=== PATIENT | male | born 1975 | race Caucasian/White ===

== ENCOUNTER 2025-09-20 15:38 | Emergency (ER) | payer SELFPAY ==
[~2025-09-20] VITALS: Ht 182.9 cm; Wt 113.0 kg
[2025-09-20 15:56] VITALS: O2SAT 98
[2025-09-20] MEDS ORDERED: HYDRALAZINE HCL 50MG TABLET PO ONE (17:00)
[2025-09-20] MEDS: LOSARTAN 50 MG TABLET PO ONE (17:17)
[2025-09-20] MEDS: AMLODIPINE 10MG TABLET PO ONE (17:17)
[2025-09-20] MEDS: HYDRALAZINE HCL 25MG TABLET PO NR (17:18)
[2025-09-20 17:21] LABS: BASOPHILS % 0.3 % (0.0-2.0); EOSINOPHILS % 0.1 % (0.0-5.0); HEMATOCRIT. 47.7 % (42.0-52.0); HEMOGLOBIN. 16.3 g/dL (14.0-18.0); LYMPHOCYTES % 8.3 % (20.0-50.0); MEAN PLATELET VOLUME 7.7 fl (7.4-10.4); MONOCYTES % 3.9 % (2.0-8.0); NEUTROPHILS % 87.4 % (40.0-76.0); PLATELET 229 x1000/uL (130-400); RED BLOOD CELL COUNT 5.20 mill/uL (4.7-6.1); RED CELL DISTRIBUTION WIDTH 12.6 % (11.6-14.6)
[2025-09-20 17:44] LABS: CREATININE 0.8 mg/dL (0.6-1.3); UREA NITROGEN BLOOD 6 mg/dL (9-23)
[2025-09-20 21:20] VITALS: BP 138/78; PULSE 98; RESP 18; TEMP 37; O2SAT 98
== END 2025-09-20 21:26 | disposition home or self-care (01) ==
LOC: ER 15:38
DX: I10 Essential (primary) hypertension (principal); F41.9 Anxiety disorder, unspecified
CPT/HCPCS: 36415; 80048; 85025; 99284